=== PATIENT | female | born 1995 | race Two or more races ===

== ENCOUNTER 2024-11-04 13:57 | Emergency (ER) | payer OTHER ==
[~2024-11-04] VITALS: Ht 160 cm; Wt 83.9 kg
[2024-11-04 16:44] LABS: BASO % 0.2 % (0.1-1.2); EOS # 0.19 (0.04-0.54); EOS % 1.0 % (0.7-7.0); LYMPH # 2.43 (1.18-3.74); LYMPH % 13.4 % (19.3-53.1); MEAN PLATELET VOLUME 8.90 fl (9.4-12.4); MONO # 1.22 (0.24-0.82); MONO % 6.7 % (4.7-12.5); NEUT # 14.10 (1.56-6.13); NEUT % 78.0 % (34.0-71.1); RED CELL DISTRIBUTION WIDTH 12.5 % (11.6-14.4)
[2024-11-04] MEDS ORDERED: KETOROLAC TROMETHAMINE 30 MG VIAL IM STA (17:13)
[2024-11-04] MEDS ORDERED: 0.9 % SODIUM CHLORIDE 500 ML IV ONE (17:15)
[2024-11-04 20:19] LABS: BASO % 0.3 % (0.1-1.2); EOS # 0.12 (0.04-0.54); EOS % 0.7 % (0.7-7.0); LYMPH # 2.44 (1.18-3.74); LYMPH % 14.3 % (19.3-53.1); MEAN PLATELET VOLUME 9.10 fl (9.4-12.4); MONO # 1.11 (0.24-0.82); MONO % 6.5 % (4.7-12.5); NEUT # 13.30 (1.56-6.13); NEUT % 77.7 % (34.0-71.1); RED CELL DISTRIBUTION WIDTH 12.5 % (11.6-14.4)
[2024-11-04] MEDS ORDERED: DEXAMETHASONE SODIUM PHOSPHATE 4 MG/ML VIAL IM STA (20:32)
[2024-11-04] MEDS ORDERED: LIDOCAINE HCL VISCOUS 20MG/ML BLIST 15ML MM STA (20:35)
[2024-11-04] MEDS ORDERED: MAG HYDROX/ALUMINUM HYD/SIMETH 30 ML BLIST.PACK PO STA (20:35)
[2024-11-04] MEDS ORDERED: CEFTRIAXONE SODIUM 1,000 MG VIAL IM STA (20:38)
[2024-11-04] MEDS ORDERED: AMOX-CLAV 875-1 EACH PO (20:41)
== END 2024-11-04 21:26 | disposition home or self-care (01) ==
LOC: ER 13:57
PROVIDERS: General Practice; Preventive Medicine Public Health & General Preventive Medicine
DX: J02.8 Acute pharyngitis due to other specified organisms (principal); B96.89 Other specified bacterial agents as the cause of diseases classified elsewhere